=== PATIENT | male | born 1990 | race Caucasian/White ===

== ENCOUNTER → 2019-10-26 | Outpatient (CLI) | payer OTHER ==
--- NOTE | 2019-10-26 17:19 | Diagnostic Imaging Report ---
EXAM: X-RAY XRAY Fingers 2-3v R CLINICAL HISTORY: Trauma with finger pain. COMPARISON: None FINDINGS: Total of 3 views of the right third finger were obtained. Alignment is anatomic. There is no fracture, bony lesions or erosions. Joint spaces are unremarkable. Surrounding soft tissue is normal. IMPRESSION: NO FRACTURE.
== END | disposition home or self-care (01) ==
LOC: RAD 16:30
DX: M25.541 Pain in joints of right hand (principal)